=== PATIENT | male | born 1990 | race Caucasian/White ===

== ENCOUNTER 2017-08-17 06:00 | Emergency (ER) | payer MEDICAID ==
[~2017-08-17] VITALS: Ht 182.9 cm; Wt 72.0 kg
[2017-08-17 10:24] VITALS: BP 114/67
== END 2017-08-17 10:45 | disposition home or self-care (01) ==
LOC: ER 06:00
DX: B85.0 Pediculosis due to Pediculus humanus capitis (principal); F20.9 Schizophrenia, unspecified; F17.210 Nicotine dependence, cigarettes, uncomplicated; F12.10 Cannabis abuse, uncomplicated; Z59.0 Homelessness; Z88.8 Allergy status to other drugs, medicaments and biological substances; Z91.018 Allergy to other foods
CPT/HCPCS: 99283